=== PATIENT | female | born 1950 | race Caucasian/White ===

== ENCOUNTER 2024-06-20 14:32 | Emergency (ER) | payer MEDICARE, OTHER, SELFPAY ==
[2024-06-20 14:57] VITALS: BP 128/84; PULSE 106; RESP 18; TEMP 37.2; O2SAT 97; BMI 26.4
--- NOTE | 2024-06-20 15:32 | DI.CT.S_ITS ---
PROCEDURE: CT ABDOMEN PELVIS W CON INDICATIONS: Eval for diverticulitis TECHNIQUE: After the administration of intravenous contrast, axial sections acquired from the lung bases to the pubic symphysis. Coronal and sagittal reformats were performed. For radiation dose reduction, the following was used: automated exposure control, adjustment of mA and/or kV according to patient size. COMPARISON: None. FINDINGS: Image quality: Diagnostic. Lower Chest: No significant findings. ABDOMEN: Liver: No solid mass. Gallbladder: Surgically absent. Biliary ducts: No biliary dilation. Pancreas: No ductal dilation. Cystic structure within the tail the pancreas measuring 2.2 centimeters. Spleen: Size is within normal limits. Adrenal Glands: No adrenal nodules. Kidneys and Ureters: No hydronephrosis. No solid mass. No complex renal cystic lesion which requires follow up. Bilateral simple appearing cysts including multiple left peripelvic cysts. Stomach and Bowel: Significant diverticulosis with wall thickening and fat stranding involving the descending colon, consistent with acute diverticulitis. No extraluminal gas or organized fluid collections. Normal appendix. Peritoneum: No abnormal intraperitoneal fluid. No free air. Ventral Wall: No significant ventral hernia. Abdominal Nodes: No retroperitoneal or mesenteric adenopathy by size criteria. Vessels: Aorta and inferior vena cava are normal in size. Atherosclerotic vascular calcifications. PELVIS: Pelvic Organs: Unremarkable. Bladder: No bladder wall thickening, accounting for underdistention. Pelvic Nodes: No enlarged lymph nodes. Miscellaneous: No inguinal hernias are seen. Bones: No aggressive osseous abnormality. Multilevel degenerative changes of the spine. IMPRESSION: 1. Findings consistent with acute uncomplicated diverticulitis of the descending colon. No extraluminal gas or organized fluid collections. 2. Cystic structure within the tail of the pancreas measuring 2.2 centimeters, likely an IPMN. Recommend nonurgent pancreatic protocol MRI for further evaluation. Dictated by: Gonzalez Dooley M.D. on 06/20/2024 at 16:48 Approved by: Gonzalez Dooley M.D. on 06/20/2024 at 16:53
[2024-06-20 15:58] LABS: Add Manual Diff / Slide Review NO; Basophils Absolute Auto 100 /uL (0-100); Basophils Percent Auto 0.5 % (0-2); Eosinophils Absolute Auto 100 /uL (0-450); Eosinophils Percent Auto 1.1 % (2-4); Hematocrit 41.4 % (36-46); Hemoglobin 13.8 g/dL (12.0-16.0); Lymphocytes Absolute Auto 1900 /uL (1100-4500); Lymphocytes Percent Auto 14.5 % (25-40); Mean Corpuscular HGB Conc 33.4 % (30-36); Mean Corpuscular Hemoglobin 28.9 PG (26-34); Mean Corpuscular Volume 86.5 fL (80-100); Monocytes Absolute Auto 1200 /uL (0-900); Neutrophils Absolute Auto 9800 /uL (1500-7000); Neutrophils Percent Auto 74.9 % (50-75); Platelet Count 319 X10^3/uL (150-400); Red Blood Cell Count 4.79 X10^6/uL (4.0-5.2); Red Cell Distribution Width 13.9 % (11.6-14.8); White Blood Cell Count 13.1 X10^3/uL (4.5-11.0)
[2024-06-20 16:12] LABS: Alanine Aminotransferase 26 IU/L (<35); Albumin 4.7 g/dL (3.5-5.0); Albumin Globulin Ratio 1.4 (1.0-2.8); Alkaline Phosphatase 116 U/L (38-126); Aspartate Aminotransferase 28 IU/L (14-36); BUN Creatinine Ratio 16.9 (6-22); Bacteria Urine None Seen; Bilirubin Total 0.6 mg/dL (0.2-1.3); Blood Urea Nitrogen 12 mg/dL (7-17); Calcium 9.5 mg/dL (8.4-10.2); Carbon Dioxide 26 mmol/L (22-32); Chloride 103 mmol/L (98-107); Estimated Glomerular Filt Rate > 60 mL/min (>60); Globulin 3.4 g/dL (1.7-4.1); Glucose 121 mg/dL (80-110); HEMOLYSIS 17 (0-50); Lipase 112 U/L (23-300); Potassium 3.5 mmol/L (3.4-5.1); RBC Urine 0-1/HPF (0-5/HPF); Sodium 138 mmol/L (137-145); Squamous Epithelial Cell Urine None Seen (0-5/HPF); Total Protein 8.1 g/dL (6.3-8.2); Urine Volume 10mL (spun); WBC Urine None Seen (0-5/HPF)
[2024-06-20 16:13] LABS: Culture Indicated Urine Cult Not Indicated
--- NOTE | 2024-06-20 16:25 | ED.GENADULT ---
HPI - General Adult General Chief complaint: Abdominal Pain Stated complaint: sent by gastro for diverticulitis flare up Time Seen by Provider: 06/20/24 15:31 Source: patient Mode of arrival: Ambulatory History of Present Illness HPI narrative: 74-year-old female. History of multiple episodes of diverticulitis. Has had her gallbladder removed but no other abdominal surgeries. Approximately 6 weeks ago she had an episode of diverticulitis. This confirmed by CT scan. She was on Cipro and Flagyl. She states her symptoms did not improve so she actually spent 21 days on this medication. She completed the course of antibiotics several weeks ago. She states that her symptoms did improve towards the hand but never completely resolved. She was still having small bowel movements. No fevers. No vomiting. Continues have pain in the left side of her abdomen. She was scheduled to have a colonoscopy and endoscopy at the beginning of next week. This was scheduled as a routine not related to the diverticulitis. She denies chest pain or shortness of breath. She contacted her GI doctor who advised that she come to the emergency department for further evaluation. Related Data Previous Rx's Medication Instructions Recorded amoxicillin 875 mg-potassium 1 tab PO Q8H 10 days #30 tabs 06/20/24 clavulanate 125 mg tablet Allergies Allergy/AdvReac Type Severity Reaction Status Date / Time Opioids - Morphine Analogues AdvReac Severe Vomiting Verified 06/20/24 15:37 Review of Systems Review of Systems ROS Unobtainable: All systems reviewed & are unremarkable except as noted in HPI and below Patient History Social History Smoking Status: Never smoker Smoking Status: Never smoker Exam Initial Vital Signs Initial Vital Signs: Vital Signs Temperature 98.9 F 06/20/24 14:57 Pulse Rate 106 H 06/20/24 14:57 Respiratory Rate 18 06/20/24 14:57 Blood Pressure 128/84 06/20/24 14:57 Pulse Oximetry 97 06/20/24 14:57 Oxygen Delivery Method Room Air 06/20/24 14:57 Const General: cooperative, comfortable and No ill appearing [facility] Head: normocephalic Resp Effort & Inspection: normal respiratory effort Cardio Rate: regular rate GI Inspection: normal to inspection and non-distended Palpation: tender Skin General: no rashes or lesions noted Neuro General: patient alert, patient awake, patient oriented x3 and moves all extremities Extrem General: normal to inspection Course Orders Ordered: ED Orders 06/20/24 15:32 CT abdomen pelvis w con Stat 06/20/24 15:50 Complete Blood Count AUTO DIFF Stat Comprehensive Metabolic Panel Stat Lipase Stat Urine Microscopic Stat Vital Signs Vital signs: Vital Signs - 8 hr 06/20/24 14:57 06/20/24 16:52 Temperature 98.9 F Pulse Rate 106 H 91 H Respiratory Rate 18 18 Blood Pressure 128/84 124/75 Pulse Oximetry 97 97 Oxygen Delivery Method Room Air Room Air Medical Decision Making Lab Data Lab results reviewed: Yes I reviewed the patient's lab results. 06/20/24 15:50 06/20/24 15:50 Labs: Lab Results 06/20/24 Range/Units 15:50 WBC 13.1 H (4.5-11.0) X10^3/uL RBC 4.79 (4.0-5.2) X10^6/uL Hgb 13.8 (12.0-16.0) g/dL Hct 41.4 (36-46) % MCV 86.5 (80-100) fL MCH 28.9 (26-34) PG MCHC 33.4 (30-36) % RDW 13.9 (11.6-14.8) % Plt Count 319 (150-400) X10^3/uL Neut % (Auto) 74.9 (50-75) % Lymph % (Auto) 14.5 L (25-40) % [facility] % (Auto) 9.0 (3-14) % Eos % (Auto) 1.1 L (2-4) % Baso % (Auto) 0.5 (0-2) % Neut # (Auto) 9800 H (8017-5757) /uL Lymph # (Auto) 1900 (7203-4993) /uL [facility] [place] [facility] # (Auto) 1200 H (0-900) /uL Eos # (Auto) 100 (0-450) /uL Baso # (Auto) 100 (0-100) /uL Sodium 138 (137-145) mmol/L Potassium 3.5 (3.4-5.1) mmol/L Chloride 103 (98-107) mmol/L Carbon Dioxide 26 (22-32) mmol/L BUN 12 (7-17) mg/dL Creatinine 0.71 (0.52-1.04) mg/dL Estimated GFR > 60 (>60) mL/min BUN/Creatinine Ratio 16.9 (6-22) Glucose 121 H (80-110) mg/dL Calcium 9.5 (8.4-10.2) mg/dL Total Bilirubin 0.6 (0.2-1.3) mg/dL AST 28 (14-36) IU/L ALT 26 (<35) IU/L Alkaline Phosphatase 116 (38-126) U/L Total Protein 8.1 (6.3-8.2) g/dL Albumin 4.7 (3.5-5.0) g/dL Globulin 3.4 (1.7-4.1) g/dL Albumin/Globulin Ratio 1.4 (1.0-2.8) Lipase 112 (23-300) U/L Urine RBC 0-1/hpf (0-5/HPF) Urine WBC None seen (0-5/HPF) Ur Squamous Epith Cells None seen (0-5/HPF) Urine Bacteria None seen (None) Ur Culture Indicated? Cult not indicated Vol Urine Centrifuged 10ml (spun) Urine Dip Bedside Urine Glucose Negative Bedside Urine Bilirubin - Negative Bedside Urine Ketone - Negative Urine Specific [place] 1.015 Bedside Urine Occult Blood +/- Bedside Urine pH 6.5 Bedside Urine Protein - Negative Bedside Urine Urobilinogen +/- 1mg Bedside Urine Nitrite - Negative Bedside Urine Leukocytes - Negative Esterase Point of care testing: Urine Dip Bedside Urine Glucose Negative Bedside Urine Bilirubin - Negative Bedside Urine Ketone - Negative Urine Specific [place] 1.015 Bedside Urine Occult Blood +/- Bedside Urine pH 6.5 Bedside Urine Protein - Negative Bedside Urine Urobilinogen +/- 1mg Bedside Urine Nitrite - Negative Bedside Urine Leukocytes - Negative Esterase Imaging Data CT scan - abdomen/pelvis: Radiologist's Impression: PROCEDURE: CT ABDOMEN PELVIS W CON INDICATIONS: Eval for diverticulitis TECHNIQUE: After the administration of intravenous contrast, axial sections acquired from the lung bases to the pubic symphysis. Coronal and sagittal reformats were performed. For radiation dose reduction, the following was used: automated exposure control, adjustment of mA and/or kV according to patient size. COMPARISON: None. FINDINGS: Image quality: Diagnostic. Lower Chest: No significant findings. ABDOMEN: Liver: No solid mass. Gallbladder: Surgically absent. Biliary ducts: No biliary dilation. Pancreas: No ductal dilation. Cystic structure within the tail the pancreas measuring 2.2 centimeters. Spleen: Size is within normal limits. Adrenal Glands: No adrenal nodules. Kidneys and Ureters: No hydronephrosis. No solid mass. No complex renal cystic lesion which requires follow up. Bilateral simple appearing cysts including multiple left peripelvic cysts. Stomach and Bowel: Significant diverticulosis with wall thickening and fat stranding involving the descending colon, consistent with acute diverticulitis. No extraluminal gas or organized fluid collections. Normal appendix. Peritoneum: No abnormal intraperitoneal fluid. No free air. Ventral Wall: No significant ventral hernia. Abdominal Nodes: No retroperitoneal or mesenteric adenopathy by size criteria. Vessels: Aorta and inferior vena cava are normal in size. Atherosclerotic vascular calcifications. PELVIS: Pelvic Organs: Unremarkable. Bladder: No bladder wall thickening, accounting for underdistention. Pelvic Nodes: No enlarged lymph nodes. Miscellaneous: No inguinal hernias are seen. Bones: No aggressive osseous abnormality. Multilevel degenerative changes of the spine. IMPRESSION: 1. Findings consistent with acute uncomplicated diverticulitis of the descending colon. No extraluminal gas or organized fluid collections. 2. Cystic structure within the tail of the pancreas measuring 2.2 centimeters, likely an IPMN. Recommend nonurgent pancreatic protocol MRI for further evaluation. MDM Narrative Medical decision making narrative: CT scan shows evidence of an acute uncomplicated diverticulitis. No signs of perforation abscess or bowel obstruction. She recently completed a 20 day course of Cipro and Flagyl. Her symptoms improved but did not completely resolve. Plan will be is to place her on Augmentin. No indication for admission to the hospital. No indication for emergent surgical consultation. She does have a GI doctor that she sees and I recommended that she contact her GI doctor for follow-up. She was given return precautions. She was tolerating oral intake. She expressed understanding. Discharge Plan Departure Patient Disposition: Home Clinical Impression: Diverticulitis Instructions: DI for Diverticulitis Activity Restrictions/Additional Instructions: Take the antibiotics as directed. I do recommend a bland diet. Contact your GI doctor for a follow-up. Return to the emergency department for new or worsening symptoms. Prescriptions: New amoxicillin-pot clavulanate 875-125 mg tablet 1 tab PO Q8H 10 Days Qty: 30 0RF Referrals: Tremaine Rudd MD [Primary Care Provider] - Stand Alone Forms: Patient Portal/API/Survey
[2024-06-20 16:52] VITALS: BP 124/75; PULSE 91; RESP 18; O2SAT 97
== END 2024-06-20 17:41 | disposition home or self-care (01) ==
PROVIDERS: Emergency Provider Emergency Medicine; PCP Family Medicine
DX: K57.32 Diverticulitis of large intestine without perforation or abscess without bleeding (principal); Z90.49 Acquired absence of other specified parts of digestive tract
CPT/HCPCS: 36415; 74177; 80053; 81003; 81015; 83690; 85025; 99284; Q9967